=== PATIENT | female | born 1935 | race American Indian/Alaskan Native ===

== ENCOUNTER 2017-06-21 09:48 | Inpatient (IN) | payer OTHER ==
[2017-06-21] MEDS ORDERED: FAMOTIDINE IV 20 MG/12 ML VIAL IVPUSH ONE (10:44)
[2017-06-21] MEDS ORDERED: ONDANSETRON 4 MG/2 ML VIAL IVPB ONE ×3 (10:44→17:14)
[2017-06-21] MEDS ORDERED: ACETAMINOPHEN 1000 MG/100 ML VIAL (NON FORMULARY) IVPB ONE (10:44)
[2017-06-21] MEDS ORDERED: ONDANSETRON 4 MG/2 ML VIAL ONE ×3 (10:54→17:18)
[2017-06-21] MEDS ORDERED: FAMOTIDINE 20 MG/50 ML IVPB 20 MG/50 ML MG IVPB ONE (10:54)
[2017-06-21] MEDS ORDERED: ACETAMINOPHEN INJECTION 100 ML IVPB ONE (10:54)
[2017-06-21] MEDS: SODIUM CHLORIDE 1,000 ML IV SCH (11:03)
[2017-06-21 11:20] LABS: BASO % 0.2 % (0-2.0); EOS % 0.1 % (0-4.5); HEMOGLOBIN 10.8 GM/dL (10.7-15.3); LYMPH % 6.7 % (8-40); MCH 24.5 pg (25.7-33.7); MCHC 32.6 g/dl (32.0-36.0); MEAN CELL VOLUME 75.2 fl (80-96); MEAN PLT VOLUME 7.4 fl (7.5-11.1); MONO % 2.9 % (3.8-10.2); NEUT % 90.1 % (42.8-82.8); PLATELET COUNT 254 K/MM3 (134-434); RBC 4.38 M/mm3 (3.60-5.2); RDW 18.9 % (11.6-15.6)
--- NOTE | 2017-06-21 11:28 | PDOC ---
History of Present Illness - General History Source: Patient Exam Limitations: No Limitations - History of Present Illness Initial Comments: 06/21/17 11:43 The patient is an 82 year old female, with a significant PMH of stroke, HTN, and thyroid disorder who presents to the emergency department with abdominal pain and retching beginning approximately this morning. The patients daughter reports the patient notes diffuse lower abdominal pain with associated nausea, retching, and back pain, as the patient tries to vomit but doesnt bring anything up. She note the patient generally has a poor appetite and normally eats about 1 full meal a day. She reports giving the patient Nexium and natali- seltzer this morning to no relief. The patient denies history of abdominal surgery. The patient denies chest pain, shortness of breath, and dizziness. Denies fever, chills, diarrhea and constipation. Denies dysuria, frequency, urgency and hematuria. Allergies: NKA Past surgical history: Brain surgery. Social history: No reported cigarette, alcohol, or drug use. PCP: Dr. Johnson <Michael Corey - Last Filed: 06/21/17 16:29> - General History Source: Patient Exam Limitations: No Limitations <Michael Jacobo - Last Filed: 06/21/17 17:35> - General Chief Complaint: Nausea Stated Complaint: PAIN Time Seen by Provider: 06/21/17 10:31 Past History <Michael Corey - Last Filed: 06/21/17 16:29> - Past Medical History COPD: No HTN: Yes Thyroid Disease: Yes - Suicide/Smoking/Psychosocial Hx Smoking History: Never smoked <Michael Jacobo - Last Filed: 06/21/17 17:35> - Past Medical History Allergies/Adverse Reactions: Allergies Allergy/AdvReac Type Severity Reaction Status Date / Time No Known Allergies Allergy Verified 06/21/17 09:54 Home Medications: Ambulatory Orders Amlodipine Besylate [Norvasc -] 5 mg PO DAILY 06/21/17 Levothyroxine [Synthroid -] 75 mcg PO DAILY 06/21/17 Review of Systems - Review of Systems Able to Perform ROS?: Yes Comments:: 06/21/17 11:43 GENERAL/CONSTITUTIONAL: No fever or chills. No weakness. HEAD, EYES, EARS, NOSE AND THROAT: No change in vision. No ear pain or discharge. No sore throat. CARDIOVASCULAR: No chest pain or shortness of breath. RESPIRATORY: No cough, wheezing, or hemoptysis. GASTROINTESTINAL: (+) Diffuse lower abdominal pain. (+) Nausea. (+) Retching. No diarrhea or constipation. GENITOURINARY: No dysuria, frequency, or change in urination. MUSCULOSKELETAL: (+) Back pain. No joint pain. No neck pain. SKIN: No rash NEUROLOGIC: No headache, vertigo, loss of consciousness, or change in strength/ sensation. ENDOCRINE: No increased thirst. No abnormal weight change. HEMATOLOGIC/LYMPHATIC: No anemia, easy bleeding, or history of blood clots. ALLERGIC/IMMUNOLOGIC: No hives or skin allergy. <Michael Corey - Last Filed: 06/21/17 16:29> *Physical Exam - Vital Signs Last Vital Signs Temp Pulse Resp BP Pulse Ox 97.2 F L 80 18 141/62 100 06/21/17 11:15 06/21/17 09:51 06/21/17 09:51 06/21/17 09:51 06/21/17 09:51 - Physical Exam Comments: 06/21/17 11:43 GENERAL: Awake, alert, and fully oriented, in no acute distress EYES: PERRLA, EOMI, sclera anicteric, conjunctiva clear ENT: Auricles normal inspection, hearing grossly normal, nares patent, oropharynx clear without exudates. Moist mucosa LUNGS: Breath sounds equal, clear to auscultation bilaterally. No wheezes, and no crackles HEART: Regular rate and rhythm, normal S1 and S2, no murmurs, rubs or gallops ABDOMEN: (+) Tenderness to palpation in the suprapubic region, LLQ, and RLQ. No guarding, no rebound. No masses EXTREMITIES: Normal range of motion, no edema. No clubbing or cyanosis. No cords, erythema, or tenderness NEUROLOGICAL: Cranial nerves II through XII grossly intact. Normal speech, normal gait SKIN: Warm, Dry, normal turgor, no rashes or lesions noted. <Michael Corey - Last Filed: 06/21/17 16:29> - Vital Signs Last Vital Signs Temp Pulse Resp BP Pulse Ox 80 18 141/62 100 06/21/17 09:51 06/21/17 09:51 06/21/17 09:51 06/21/17 09:51 <Michael Jacobo - Last Filed: 06/21/17 17:35> Heart Score/ECG Review #1 ECG reviewed & interpreted by me at: 11:10 06/21/17 15:18 NSR 71, no std/farrukh, nonspecific ST flattening, QTC 467 msec <Michael Jacobo - Last Filed: 06/21/17 17:35> ED Treatment Course - LABORATORY CBC & Chemistry Diagram: 06/21/17 11:12 06/21/17 11:12 - Medications Given in the ED: ED Medications Discontinued Medications Generic Name Dose Route Start Last Admin Trade Name Freq PRN Reason Stop Dose Admin Acetaminophen 1,000 mg 06/21/17 10:44 06/21/17 11:19 Ofirmev Injection - IVPB 06/21/17 10:45 1,000 mg ONCE ONE Administration Famotidine 20 mg in 12 mls @ 144 mls/hr 06/21/17 10:44 06/21/17 11:02 Pepcid 20 Mg/12 Ml Push IVPUSH 06/21/17 10:48 144 mls/hr ONCE ONE Administration Ondansetron HCl 4 mg 06/21/17 10:44 06/21/17 11:03 Zofran Injection IVPB 06/21/17 10:45 4 mg ONCE ONE Administration <Michael Corey - Last Filed: 06/21/17 16:29> - LABORATORY CBC & Chemistry Diagram: 06/21/17 11:12 06/21/17 11:12 - RADIOLOGY Radiology Studies Ordered: Category Date Time Status ABDOMEN & PELVIS CT WITH CONTR [CT] Stat CT Scan 06/21/17 10:43 Ordered CHEST X-RAY PORTABLE* [RAD] Stat Radiology 06/21/17 10:43 Ordered - Medications Given in the ED: ED Medications Discontinued Medications Generic Name Dose Route Start Last Admin Trade Name Freq PRN Reason Stop Dose Admin Famotidine 20 mg in 12 mls @ 144 mls/hr 06/21/17 10:44 06/21/17 11:02 Pepcid 20 Mg/12 Ml Push IVPUSH 06/21/17 10:48 144 mls/hr ONCE ONE Administration Ondansetron HCl 4 mg 06/21/17 10:44 03/17/18 11:03 Zofran Injection IVPB 06/21/17 10:45 4 mg ONCE ONE Administration <Michael Jacobo - Last Filed: 06/21/17 17:35> Medical Decision Making - Medical Decision Making 06/21/17 16:[address] Johnson and discussed this case. 06/21/17 16:[address] Paiz and discussed this case. <Michael Corey - Last Filed: 06/21/17 16:29> - Medical Decision Making 06/21/17 11:28 A portion of this note was documented by scribe services under my direction. I have reviewed the details of the note, within reason, and agree with the documentation with the following case summary and management plan written by me. Patient treated in the ED. Nursing notes are reviewed and incorporated into the medical decision-making. Vital signs reviewed. Peripheral IV access obtained by the nurse, laboratory studies are drawn and sent, reviewed and interpreted by myself. Vital Signs Temp Pulse Resp BP Pulse Ox 97.2 F L 80 18 141/62 100 06/21/17 11:15 06/21/17 09:51 06/21/17 09:51 06/21/17 09:51 06/21/17 09:51 82-year-old female with history of hypertension, thyroid disorder, stroke presents with nausea, vomiting abdominal pain since this morning. Patient has had poor appetite but no fevers or chills. Denies any chest pain. Denies dysuria diarrhea. Patient has been generally weak when she typically is much more active. We'll need to rule out colitis, appendicitis, cystitis, colitis, other acute abdominal pathology. I suspect this is likely GI. We'll obtain labs, urinalysis and a CAT scan the abdomen pelvis and reassess. 06/21/17 17:01 CBC, BMP 06/21/17 11:12 06/21/17 11:12 CMP Sodium 138 mmol/L (136-145) 06/21/17 11:12 Potassium 3.2 mmol/L (3.5-5.1) L 06/21/17 11:12 Chloride 104 mmol/L (98-107) 06/21/17 11:12 Carbon Dioxide 27 mmol/L (21-32) 06/21/17 11:12 Anion Gap 7 (8-16) L 06/21/17 11:12 BUN 8 mg/dL (7-18) 06/21/17 11:12 Creatinine 0.5 mg/dL (0.55-1.02) L 06/21/17 11:12 Creat Clearance w eGFR > 60 (>60) 06/21/17 11:12 Random Glucose 153 mg/dL (74-106) H 06/21/17 11:12 Calcium 8.7 mg/dL (8.5-10.1) 06/21/17 11:12 Phosphorus 3.0 mg/dL (2.5-4.9) 06/21/17 11:12 Magnesium 2.0 mg/dL (1.8-2.4) 06/21/17 11:12 Total Bilirubin 0.3 mg/dL (0.2-1.0) 06/21/17 11:12 AST 12 U/L (15-37) L 06/21/17 11:12 ALT 11 U/L (12-78) L 06/21/17 11:12 Alkaline Phosphatase 90 U/L (45-117) 06/21/17 11:12 Creatine Kinase 86 IU/L (26-192) 06/21/17 11:12 Troponin I < 0.02 ng/ml (0.00-0.05) 06/21/17 11:12 Total Protein 8.1 g/dl (6.4-8.2) 06/21/17 11:12 Albumin 4.0 g/dl (3.4-5.0) 06/21/17 11:12 Lipase 101 U/L (73-393) 06/21/17 11:12 Urine Test Results Urine Color Straw 06/21/17 11:30 Urine Appearance Cloudy 06/21/17 11:30 Urine pH 8.0 (5.0-8.0) 06/21/17 11:30 Ur Specific [place] 1.009 (1.001-1.035) 06/21/17 11:30 Urine Protein Negative (NEGATIVE) 06/21/17 11:30 Urine Glucose (UA) Negative (NEGATIVE) 06/21/17 11:30 Urine Ketones Negative (NEGATIVE) 06/21/17 11:30 Urine Blood Negative (NEGATIVE) 06/21/17 11:30 Urine Nitrite Negative (NEGATIVE) 06/21/17 11:30 Urine Bilirubin Negative (NEGATIVE) 06/21/17 11:30 Ur Leukocyte Esterase 1+ (NEGATIVE) H 06/21/17 11:30 Ur Epithelial Cells Rare /HPF (FEW) 06/21/17 11:30 Urine Bacteria Rare /hpf (NONE SEEN) 06/21/17 11:30 Urinalysis demonstrates 1+ leukocyte esterase and 10 WBCs as well as yeast in the urine. 1 g of Rocephin and IV Diflucan ordered. CAT scan demonstrates a partial small bowel obstruction and left inguinal hernia. Reduction attempt was made with what appears to be a reduction in the hernia. However, patient still feels somewhat nauseous, and unclear if it was a complete reduction. We'll defer on NG tube at this time. Case is discussed with Dr. Johnson who requests general surgeon Dr. Paiz. He accepts the patient to his service. Case discussed with Dr. Paiz who will see patient as a parts consultant and determine further workup and management Case discussed in detail with admitting physician including history, physical exam and ancillary studies. Admitting physician has assumed care for the patient, will follow all pending diagnostics and will complete the evaluation and treatment. 06/21/17 17:35 Pt with persistent nausea and vomiting. NGT placed 18 Malay left nostril. <Michael Jacobo - Last Filed: 06/21/17 17:35> *DC/Admit/Observation/Transfer - Attestations Scribe Attestion: 06/21/17 11:43 Documentation prepared by Michael Corey, acting as medical researcher for Michael Jacobo MD. <Michael Corey - Last Filed: 06/21/17 16:29> - Discharge Dispostion Admit: Yes <Michael Jacobo - Last Filed: 06/21/17 17:35> Diagnosis at time of Disposition: Yeast cystitis UTI (urinary tract infection) Qualifiers: Urinary tract infection type: site unspecified Hematuria presence: without hematuria Qualified Code(s): N39.0 - Urinary tract infection, site not specified Inguinal hernia Qualifiers: Obstruction and gangrene presence: with obstruction but without gangrene Laterality: unilateral Recurrence: non-recurrent Qualified Code(s): K40.30 - Unilateral inguinal hernia, with obstruction, without gangrene, not specified as recurrent - Discharge Dispostion Condition at time of disposition: Stable - Referrals Referrals: Narciso Johnson MD [Primary Care Provider] - - Patient Instructions - Post Discharge Activity
[2017-06-21 11:46] LABS: URINE APPEARANCE CLOUDY; URINE BILIRUBIN NEGATIVE (NEGATIVE); URINE BLOOD NEGATIVE (NEGATIVE); URINE COLOR STRAW; URINE GLUCOSE (UA) NEGATIVE (NEGATIVE); URINE KETONE NEGATIVE (NEGATIVE); URINE NITRITE NEGATIVE (NEGATIVE); URINE PROTEIN NEGATIVE (NEGATIVE); URINE UROBILINOGEN NEGATIVE mg/dL (0.2-1.0)
[2017-06-21 11:54] LABS: ALK PHOS 90 U/L (45-117); ANION GAP 7 (8-16); BILIRUBIN,TOTAL 0.3 mg/dL (0.2-1.0); BLOOD UREA NITROGEN 8 mg/dL (7-18); CALCIUM 8.7 mg/dL (8.5-10.1); CHLORIDE 104 mmol/L (98-107); CO2 27 mmol/L (21-32); CREATININE 0.5 mg/dL (0.55-1.02); GLUCOSE,RANDOM 153 mg/dL (74-106); LIPASE 101 U/L (73-393); POTASSIUM 3.2 mmol/L (3.5-5.1); SGOT/AST 12 U/L (15-37); SGPT/ALT 11 U/L (12-78); SODIUM 138 mmol/L (136-145); TOT PROT 8.1 g/dl (6.4-8.2)
[2017-06-21 12:15] LABS: URINE LEUK ESTERASE 1+ (NEGATIVE)
[2017-06-21 13:43] LABS: EPI CELLS RARE /HPF (FEW); YEAST MODERATE
[2017-06-21 13:47] LABS: URINE BACTERIA RARE /hpf (NONE SEEN)
[2017-06-21] MEDS ORDERED: IBUPROFEN 600 MG TABLET (FP) PO ONE (15:07)
[2017-06-21] MEDS ORDERED: CEFTRIAXONE 1 GM in DEXTROSE 5%-WATER - 50 ML IVPB ONE (16:20)
[2017-06-21] MEDS ORDERED: CEFTRIAXONE 1 GM/50 ML BAG ONE (16:22)
[2017-06-21] MEDS ORDERED: FLUCONAZOLE 200 MG/D5W 100 ML IVPB ONE (16:58)
[2017-06-21] MEDS ORDERED: DEXTROSE 5%-NORMAL SALINE 1,000 ML IV SCH (18:30)
--- NOTE | 2017-06-21 18:39 | EKG ---
Test Reason : Blood Pressure : / mmHG Vent. Rate : 071 BPM Atrial Rate : 071 BPM P-R Int : 172 ms QRS Dur : 088 ms QT Int : 430 ms P-R-T Axes : 043 -07 008 degrees QTc Int : 467 ms SINUS RHYTHM WITH PREMATURE ATRIAL COMPLEXES CANNOT RULE OUT INFERIOR INFARCT , AGE UNDETERMINED ABNORMAL ECG NO PREVIOUS ECGS AVAILABLE Confirmed by NICKIE PAPPAS MD ([id number]) on 06/21/2017 6:39:21 PM Referred By: Confirmed By:NICKIE PAPPAS MD
--- NOTE | 2017-06-21 21:46 | CONSULT ---
Consult Consult Specialty:: Surgery Referred by:: Narciso zamarripa MD Reason for Consultation:: Intestinal obstruction, Incarcerated left inguinal hernia. - History of Present Illness Chief Complaint: 82 year old woman c/o lower abdominal pain since morning, with wretching. Also noted some swelling in left groin. History of Present Illness: 82 year old woman was brought to the Er for lower abdominal pain , since this morning, with anorexiia, and wretching. In the er she was noted to have a swelling in the right groin / inguinal area, which was reduced in the emergency room. 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 brain surgery. - Smoking History Smoking history: Never smoked - Social History Usual Living Arrangement: With Child ADL: Family Assistance Home Medications - Allergies Allergies/Adverse Reactions: Allergies Allergy/AdvReac Type Severity Reaction Status Date / Time No Known Allergies Allergy Verified 06/21/17 09:54 - Home Medications Home Medications: Ambulatory Orders Amlodipine Besylate [Norvasc -] 5 mg PO DAILY 06/21/17 Levothyroxine [Synthroid -] 75 mcg PO DAILY 06/21/17 Review of Systems - Review of Systems Constitutional: reports: No Symptoms Eyes: reports: No Symptoms HENT: reports: No Symptoms Neck: reports: No Symptoms Cardiovascular: reports: No Symptoms Respiratory: reports: No Symptoms Gastrointestinal: reports: Abdominal Pain, Nausea Physical Exam Vital Signs: Vital Signs Temperature 97.8 F 06/21/17 18:37 Pulse Rate 78 06/21/17 18:37 Respiratory Rate 18 06/21/17 18:37 Blood Pressure 149/70 06/21/17 18:37 O2 Sat by Pulse Oximetry (%) 96 06/21/17 18:37 Gastrointestinal: Yes: Other (Mass in left lower quadrant/ inguinal area, reduced in the ER. No abdominal distention.) Labs: CBC, BMP 06/21/17 11:12 06/21/17 11:12 Imaging - Results Cat Scan: Report Reviewed (Partiel small bowel obstruction from an ancarcerated / strangulated left inguinal hernia), Image Reviewed Problem List - Problems (1) Intestinal obstruction Code(s): K56.609 - UNSP INTESTNL OBST, UNSP TO PARTIAL VERSUS COMPLETE OBST Qualifiers: Intestinal obstruction extent: partial (2) Incarcerated left inguinal hernia Code(s): K40.30 - UNIL INGUINAL HERNIA, W OBST, W/O GANGR, NOT SPCF RECUR (3) Hypothyroid Code(s): E03.9 - HYPOTHYROIDISM, UNSPECIFIED Qualifiers: Hypothyroidism type: acquired Qualified Code(s): E03.9 - Hypothyroidism, unspecified (4) Hypertension Code(s): I10 - ESSENTIAL (PRIMARY) HYPERTENSION (5) History of stroke Code(s): Z86.73 - PRSNL HX OF TIA (TIA), AND CEREB INFRC W/O RESID DEFICITS Assessment/Plan Reduced incarcerated left inguinal hernia, with intestinal obstruction. NG tube has been placed. Follow up abdominal X-ray in the morning. The hernia has been reduced, and abdominal pain has improved. Prepare for repair of left inguinal hernia on Friday after medical assessment. This can be done with local anesthesia with IV sedation. family is informed , made aware and agreed with the patient. Dr Maverick Zamarripa . primary physician aware.
[2017-06-21 21:51] VITALS: BMI 18.1
[2017-06-22 07:20] LABS: HEMATOCRIT 31.1 % (32.4-45.2); HEMOGLOBIN 10.2 GM/dL (10.7-15.3); MCH 24.7 pg (25.7-33.7); MCHC 32.9 g/dl (32.0-36.0); MEAN CELL VOLUME 75.1 fl (80-96); MEAN PLT VOLUME 7.5 fl (7.5-11.1); PLATELET COUNT 243 K/MM3 (134-434); RBC 4.13 M/mm3 (3.60-5.2); RDW 18.8 % (11.6-15.6); WHITE BLOOD COUNT 8.2 K/mm3 (4.0-10.0)
[2017-06-22 08:02] LABS: CHLORIDE 104 mmol/L (98-107); SODIUM 140 mmol/L (136-145)
[2017-06-22 08:19] LABS: ALBUMIN 3.3 g/dl (3.4-5.0); ALK PHOS 77 U/L (45-117); ANION GAP 14 (8-16); BILIRUBIN,TOTAL 0.6 mg/dL (0.2-1.0); BLOOD UREA NITROGEN 5 mg/dL (7-18); CALCIUM 8.3 mg/dL (8.5-10.1); CO2 22 mmol/L (21-32); CREATININE 0.5 mg/dL (0.55-1.02); GLUCOSE,RANDOM 166 mg/dL (74-106); SGOT/AST 13 U/L (15-37); SGPT/ALT 9 U/L (12-78); TOT PROT 7.4 g/dl (6.4-8.2)
[2017-06-22 08:35] LABS: POTASSIUM 2.6 mmol/L (3.5-5.1)
[2017-06-22] MEDS ORDERED: POTASSIUM CHLORIDE 10 MEQ in SODIUM CHLORIDE 100 ML IVPB ONE (10:15)
[2017-06-22] MEDS: D5-NS + 20 MEQ KCL - 20 MEQ/1,000 ML INFUS.BAG IV SCH (11:07)
[2017-06-22] MEDS: POTASSIUM CHLORIDE 10 MEQ in SODIUM CHLORIDE 100 ML IVPB SCH ×3 (11:08→17:57)
[2017-06-22] MEDS: SODIUM CHLORIDE 1,000 ML IV SCH (11:24)
--- NOTE | 2017-06-22 12:02 | HP ---
DATE OF ADMISSION: 06/21/2017 This is an 82-year-old female originally from [place] with a past medical history of stroke, hypertension, hypothyroidism who came to the emergency room yesterday with abdominal pain and retching; also had vomiting. She was complaining of lower abdominal pain. In the emergency room, it was diagnosed that patient has intractable inguinal hernia with a partial small bowel obstruction. Patient was treated with NG tube. Afterwards, the intestinal obstruction was resolved. Evaluated by Dr. Paiz; advised to inguinal hernia surgery after the symptoms resolved. PHYSICAL EXAMINATION: General: Today's abdominal pain is better. Vital Signs: Blood pressure 160/80, pulse 72, respirations 20, temperature 98. HEENT: Unremarkable. Neck: Supple. No JVD. Lungs: Clear. Heart: S1, S2 normal. No S3, S4. Abdomen: Soft. Breasts: No masses. Legs: No edema. Neurologic: Examination grossly normal. LABORATORY REPORTED: WBC 8.2, hemoglobin 10.2, hematocrit 31. Chemistry: Sodium 140, potassium this morning is 2.6, BUN 5, creatinine 0.5. LFTs are normal. Chest x-ray: Negative. X-ray of abdomen this morning: Small bowel obstruction, retaining contrast. IMPRESSION: Intestinal obstruction, recovered. PLAN: Keep IV fluid, correct potassium. Patient is medically cleared for the surgery. Dilcia [id number]
--- NOTE | 2017-06-22 13:01 | PN ---
Progress Note, Physician - Current Medication List Current Medications: Active Medications Sodium Chloride (Normal Saline -) 1,000 mls @ 125 mls/hr IV ASDIR CARI Last Admin: 06/22/17 11:24 Dose: Not Given Dextrose/Sodium Chloride (Dextrose 5%-Normal Saline+20 Meq Kcl -) 20 meq in 1, 000 mls @ 125 mls/hr IV ASDIR CARI Last Admin: 06/22/17 11:07 Dose: 125 mls/hr Potassium Chloride 10 meq/ (Sodium Chloride) 105 mls @ 105 mls/hr IVPB Q1H CARI Stop: 06/22/17 13:59 Last Admin: 06/22/17 11:08 Dose: 105 mls/hr - Objective Vital Signs: Vital Signs Temperature 97.6 F 06/22/17 11:28 Pulse Rate 76 06/22/17 11:28 Respiratory Rate 18 06/22/17 11:28 Blood Pressure 145/71 06/22/17 11:28 O2 Sat by Pulse Oximetry (%) 96 06/21/17 20:40 Labs: CBC, BMP 06/22/17 06:08 06/22/17 06:08 Problem List - Problems (1) Intestinal obstruction Code(s): K56.609 - UNSP INTESTNL OBST, UNSP TO PARTIAL VERSUS COMPLETE OBST Qualifiers: Intestinal obstruction extent: partial (2) Incarcerated left inguinal hernia Code(s): K40.30 - UNIL INGUINAL HERNIA, W OBST, W/O GANGR, NOT SPCF RECUR (3) Hypothyroid Code(s): E03.9 - HYPOTHYROIDISM, UNSPECIFIED Qualifiers: Hypothyroidism type: acquired Qualified Code(s): E03.9 - Hypothyroidism, unspecified (4) Hypertension Code(s): I10 - ESSENTIAL (PRIMARY) HYPERTENSION (5) History of stroke Code(s): Z86.73 - PRSNL HX OF TIA (TIA), AND CEREB INFRC W/O RESID DEFICITS Assessment/Plan Patient has no abdominal pain, no abdominal distention. Afebrile. Abdomen is soft, notbtender, not distended. X-ray of abdomen shows no progression of contrast. WBC is normal. Minimal NG drainage. No swelling , redness or tenderness in the left groin. Mainatin NG tube to suction. Will schedule patient for laparoscopy, possible laparotomy , and repair of incarcerated left inguinal hernia tomorrow. Patient and her daughter were explained. Consent obtained.
[2017-06-22] MEDS ORDERED: ONDANSETRON 4 MG/2 ML VIAL IM PRN (13:04)
[2017-06-22] MEDS ORDERED: ONDANSETRON 4 MG/2 ML VIAL IVPB PRN (19:44)
[2017-06-23 07:26] LABS: CHLORIDE 108 mmol/L (98-107); SODIUM 142 mmol/L (136-145)
[2017-06-23 07:33] LABS: ALBUMIN 3.2 g/dl (3.4-5.0); ALK PHOS 70 U/L (45-117); ANION GAP 12 (8-16); BILIRUBIN,TOTAL 0.5 mg/dL (0.2-1.0); BLOOD UREA NITROGEN 7 mg/dL (7-18); CALCIUM 8.6 mg/dL (8.5-10.1); CO2 22 mmol/L (21-32); CREATININE 0.4 mg/dL (0.55-1.02); GLUCOSE,RANDOM 152 mg/dL (74-106); SGOT/AST 8 U/L (15-37); SGPT/ALT 8 U/L (12-78); TOT PROT 7.2 g/dl (6.4-8.2)
[2017-06-23 07:48] LABS: BASO % 0.2 % (0-2.0); HEMATOCRIT 30.8 % (32.4-45.2); HEMOGLOBIN 10.1 GM/dL (10.7-15.3); LYMPH % 6.4 % (8-40); MCH 24.8 pg (25.7-33.7); MCHC 32.9 g/dl (32.0-36.0); MEAN CELL VOLUME 75.3 fl (80-96); MEAN PLT VOLUME 7.9 fl (7.5-11.1); MONO % 5.2 % (3.8-10.2); NEUT % 88.2 % (42.8-82.8); PLATELET COUNT 248 K/MM3 (134-434); RBC 4.09 M/mm3 (3.60-5.2); RDW 18.6 % (11.6-15.6); WHITE BLOOD COUNT 10.2 K/mm3 (4.0-10.0)
[2017-06-23 07:49] LABS: INR 1.19 (0.82-1.09); PROTHROMBIN TIME (PATIENT) 13.5 SEC (9.98-11.88)
[2017-06-23 08:13] LABS: POTASSIUM 2.9 mmol/L (3.5-5.1)
--- NOTE | 2017-06-23 09:10 | PN ---
Progress Note, Physician Chief Complaint: No new complaints History of Present Illness: Schduled for surgery. K 2.9 Plan 3doses of KCLand rpt lab - Current Medication List Current Medications: Active Medications Sodium Chloride (Normal Saline -) 1,000 mls @ 125 mls/hr IV ASDIR CARI Last Admin: 06/22/17 11:24 Dose: Not Given Dextrose/Sodium Chloride (Dextrose 5%-Normal Saline+20 Meq Kcl -) 20 meq in 1, 000 mls @ 125 mls/hr IV ASDIR CARI Last Admin: 06/22/17 11:07 Dose: 125 mls/hr Potassium Chloride (Potassium Chloride 10 Meq Premix Ivpb -) 10 meq in 100 mls @ 100 mls/hr IVPB Q60M CARI Stop: 06/23/17 12:14 Ondansetron HCl (Zofran Injection) 4 mg IVPB Q6H PRN PRN Reason: NAUSEA AND/OR VOMITING - Objective Vital Signs: Vital Signs Temperature 98.3 F 06/23/17 06:34 Pulse Rate 76 06/23/17 06:34 Respiratory Rate 18 06/23/17 06:34 Blood Pressure 149/64 06/23/17 06:34 O2 Sat by Pulse Oximetry (%) 98 06/22/17 21:00 Constitutional: Yes: No Distress HENT: Yes: WNL Neck: Yes: WNL Cardiovascular: Yes: WNL Respiratory: Yes: WNL Gastrointestinal: Yes: WNL ...Rectal Exam: Yes: WNL Genitourinary: Yes: WNL Edema: No Neurological: Yes: Alert Labs: CBC, BMP 06/23/17 05:35 06/23/17 05:35 INR, PTT INR 1.19 (0.82-1.09) H 06/23/17 05:35 Assessment/Plan Kcl supplements
[2017-06-23] MEDS: POTASSIUM CHLORIDE 10 MEQ in SODIUM CHLORIDE 100 ML IVPB SCH ×3 (10:19→12:32)
[2017-06-23 11:18] LABS: ALBUMIN 3.4 g/dl (3.4-5.0); ANION GAP 10 (8-16); BLOOD UREA NITROGEN 6 mg/dL (7-18); CALCIUM 8.2 mg/dL (8.5-10.1); CHLORIDE 110 mmol/L (98-107); CO2 24 mmol/L (21-32); CREATININE 0.5 mg/dL (0.55-1.02); POTASSIUM 2.9 mmol/L (3.5-5.1); SGOT/AST 8 U/L (15-37); SGPT/ALT 11 U/L (12-78); SODIUM 144 mmol/L (136-145)
[2017-06-23 11:20] LABS: ALK PHOS 72 U/L (45-117); BILIRUBIN,TOTAL 0.5 mg/dL (0.2-1.0); TOT PROT 7.3 g/dl (6.4-8.2)
[2017-06-23 11:21] LABS: GLUCOSE,RANDOM 134 mg/dL (74-106)
[2017-06-23] MEDS: D5-NS + 20 MEQ KCL - 20 MEQ/1,000 ML INFUS.BAG IV SCH (11:25)
[2017-06-23] MEDS: SODIUM CHLORIDE 1,000 ML IV SCH (11:26)
--- NOTE | 2017-06-23 14:19 | PN ---
Progress Note, Physician - Current Medication List Current Medications: Active Medications Sodium Chloride (Normal Saline -) 1,000 mls @ 125 mls/hr IV ASDIR CARI Last Admin: 06/23/17 11:26 Dose: Not Given Dextrose/Sodium Chloride (Dextrose 5%-Normal Saline+20 Meq Kcl -) 20 meq in 1, 000 mls @ 125 mls/hr IV ASDIR CARI Last Admin: 06/23/17 11:25 Dose: 125 mls/hr Ondansetron HCl (Zofran Injection) 4 mg IVPB Q6H PRN PRN Reason: NAUSEA AND/OR VOMITING Last Admin: 06/23/17 13:23 Dose: 4 mg - Objective Vital Signs: Vital Signs Temperature 98.3 F 06/23/17 06:34 Pulse Rate 76 06/23/17 06:34 Respiratory Rate 18 06/23/17 06:34 Blood Pressure 149/64 06/23/17 06:34 O2 Sat by Pulse Oximetry (%) 98 06/23/17 09:00 Labs: CBC, BMP 06/23/17 05:35 06/23/17 10:00 INR, PTT INR 1.19 (0.82-1.09) H 06/23/17 05:35 Problem List - Problems (1) Intestinal obstruction Code(s): K56.609 - UNSP INTESTNL OBST, UNSP TO PARTIAL VERSUS COMPLETE OBST Qualifiers: Intestinal obstruction extent: partial (2) Incarcerated left inguinal hernia Code(s): K40.30 - UNIL INGUINAL HERNIA, W OBST, W/O GANGR, NOT SPCF RECUR (3) Hypothyroid Code(s): E03.9 - HYPOTHYROIDISM, UNSPECIFIED Qualifiers: Hypothyroidism type: acquired Qualified Code(s): E03.9 - Hypothyroidism, unspecified (4) Hypertension Code(s): I10 - ESSENTIAL (PRIMARY) HYPERTENSION (5) History of stroke Code(s): Z86.73 - PRSNL HX OF TIA (TIA), AND CEREB INFRC W/O RESID DEFICITS Assessment/Plan NG drainage 250 ml in 24 hours. Patient still has some lower abdominal pain. No swelling felt in left inguinal hernia. Abdominal X ray shows persistent small bowel obstruction. Abdomen is not distended. ? Persistent small bowel obstruction , following reduction of incarcerated left inguinal hernia. R/O Reduction en iain. Patient and her daughter were explained of the findings and procedure planned , laparoscopy , possible laparotomy. possible surgery for intestinal obstruction, and repair of inguinal hernia. Risks , benefits and complications explained. Runs of potassium given , for hypokalemia. All questions answered.
[2017-06-23] MEDS ORDERED: ROCURONIUM BROMIDE 50 MG/5 ML VIAL ONE ×2 (14:59→15:00)
[2017-06-23] MEDS ORDERED: PROPOFOL 20 ML ONE (14:59)
[2017-06-23] MEDS ORDERED: SUCCINYLCHOLINE CHLORIDE 200 MG/10 ML VIAL ONE (14:59)
[2017-06-23] MEDS ORDERED: LIDOCAINE HCL/PF 2% SDV 5ML VIAL ONE (14:59)
[2017-06-23] MEDS ORDERED: BUPIVACAINE HCL/PF 0.5% (5MG/ML) 10 ML VIAL ONE (15:01)
[2017-06-23] MEDS ORDERED: NEOSTIGMINE METHYLSULFATE 0.5 MG/ML - 10 ML MDV ONE (16:48)
[2017-06-23] MEDS ORDERED: GLYCOPYRROLATE 0.2 MG/1 ML VIAL ONE ×2 (16:48)
[2017-06-23] MEDS ORDERED: BUPIVACAINE HCL/PF 0.5% (5MG/ML) 10 ML VIAL IJ ONE (16:48)
--- NOTE | 2017-06-23 17:10 | OP ---
Operative Note - Note: Operative Date: 06/23/17 Pre-Operative Diagnosis: Incarcerated left groin hernia, intestinal obstruction , Hypokalemia. Operation: 1)Repair of incarcerated left femoral hernia with plug and mesh,. 2) Diagnostic laproscopy. Findings: Incarcerated segment of small intestine , in left sided femoral hernia. The small intestine inmproved in color and mobility after releasing from the incarceration. Diagnostic laparoscopy , revealed no other pathology, with improved segment of small intestine with normal peristalsis across the incarcerated segment. Surgeon: Sridhar Paiz Conservation Worker: Nataly Lemus Anesthesiologist/DIRECTOR STERILE PROCESSING: Reid Tian Anesthesia: General Specimens Removed: Incarcerated hernial sac , of left femoral hernia. Estimated Blood Loss (mls): 30 Operative Report Dictated: Yes
[2017-06-23] MEDS ORDERED: HYDROmorphone HCL CARPU-JECT 4 MG/1 ML DISP.SYRIN IVPUSH PRN ×2 (17:13→18:43)
[2017-06-23] MEDS ORDERED: ONDANSETRON 4 MG/2 ML VIAL IVPUSH PRN ×2 (17:19→18:43)
[2017-06-23] MEDS ORDERED: oxyCODONE HCL 5 MG TABLET PO PRN (17:19)
[2017-06-23] MEDS ORDERED: PROMETHAZINE HCL 25 MG/1 ML VIAL IVPUSH PRN ×2 (17:19→18:43)
--- NOTE | 2017-06-23 17:35 | SURG ---
Surgery Tmr Teacher Note Tmr Teacher: Nataly Lemus PA-C Date of Service: 06/23/17 Diagnosis: Incarcerated left groin hernia, intestinal obstruction, Hypokalemia. Procedure: 1)Repair of incarcerated left femoral hernia with plug and mesh,. 2) Diagnostic laproscopy. I was present for the entirety of the operative procedure. For further detail, please refer to operative report. Visit type - Case Type Case Type: Scheduled Admission - Emergency Emergency Visit: No - New patient This patient is new to me today: Yes Date on this admission: 06/23/17
[2017-06-23 18:08] LABS: HEMATOCRIT 32.9 % (32.4-45.2); HEMOGLOBIN 10.9 GM/dL (10.7-15.3); MCH 25.1 pg (25.7-33.7); MCHC 33.2 g/dl (32.0-36.0); MEAN CELL VOLUME 75.5 fl (80-96); PLATELET COUNT 237 K/MM3 (134-434); RBC 4.36 M/mm3 (3.60-5.2); RDW 18.8 % (11.6-15.6); WHITE BLOOD COUNT 9.9 K/mm3 (4.0-10.0)
[2017-06-23] MEDS ORDERED: D5-NS + 20 MEQ KCL - 20 MEQ/1,000 ML INFUS.BAG IV SCH (18:43)
[2017-06-23 18:52] LABS: ANION GAP 6 (8-16); BLOOD UREA NITROGEN 5 mg/dL (7-18); CALCIUM 8.1 mg/dL (8.5-10.1); CHLORIDE 110 mmol/L (98-107); CO2 26 mmol/L (21-32); CREATININE 0.4 mg/dL (0.55-1.02); GLUCOSE,RANDOM 126 mg/dL (74-106); SODIUM 142 mmol/L (136-145)
[2017-06-23 19:01] LABS: POTASSIUM 3.5 mmol/L (3.5-5.1)
[2017-06-24] MEDS: POTASSIUM CHLORIDE 20 MEQ in DEXTROSE 5%-NORMAL SALINE 1,000 ML IVPB SCH ×4 (01:05→22:27)
[2017-06-24 07:46] LABS: CHLORIDE 108 mmol/L (98-107); SODIUM 144 mmol/L (136-145)
[2017-06-24 07:55] LABS: HEMATOCRIT 27.2 % (32.4-45.2); MCH 24.9 pg (25.7-33.7); MCHC 33.2 g/dl (32.0-36.0); MEAN CELL VOLUME 74.9 fl (80-96); MEAN PLT VOLUME 7.9 fl (7.5-11.1); PLATELET COUNT 217 K/MM3 (134-434); RBC 3.63 M/mm3 (3.60-5.2); RDW 18.3 % (11.6-15.6); WHITE BLOOD COUNT 9.9 K/mm3 (4.0-10.0)
[2017-06-24 07:57] LABS: ANION GAP 11 (8-16); BLOOD UREA NITROGEN 11 mg/dL (7-18); CALCIUM 8.4 mg/dL (8.5-10.1); CO2 25 mmol/L (21-32); CREATININE 0.4 mg/dL (0.55-1.02); GLUCOSE,RANDOM 110 mg/dL (74-106)
--- NOTE | 2017-06-24 09:25 | PN ---
Progress Note, Physician History of Present Illness: S/P repair of incarserated femoral hernia Left Tolerated the procedure well - Current Medication List Current Medications: Active Medications Fentanyl (Sublimaze Injection -) 25 mcg IVPUSH [id number] PRN PRN Reason: PAIN-PACU ORDER X 4 DOSES ONLY Last Admin: 06/23/17 18:55 Dose: 25 mcg Heparin Sodium (Porcine) (Heparin -) 5,000 unit SQ BID [facility] Hydromorphone HCl (Dilaudid Injection -) 0.5 mg IVPUSH Q4H PRN PRN Reason: PAIN LEVEL 1-5 Metronidazole (Flagyl 500mg Premixed Ivpb -) 500 mg in 100 mls @ 100 mls/hr IVPB Q8H-IV [facility] Stop: 06/24/17 17:59 Last Admin: 06/24/17 01:14 Dose: 100 mls/hr Levofloxacin (Levaquin 500 Mg Premixed Ivpb -) 500 mg in 100 mls @ 100 mls/hr IVPB ONCE ONE Stop: 06/24/17 18:13 Potassium Chloride 20 meq/ (Dextrose/Sodium Chloride) 1,010 mls @ 125 mls/hr IVPB Q8H [facility] Last Admin: 06/24/17 01:05 Dose: 125 mls/hr Ondansetron HCl (Zofran Injection) 4 mg IVPUSH Q6H PRN PRN Reason: NAUSEA AND/OR VOMITING Promethazine HCl (Phenergan Injection -) 12.5 mg IVPUSH Q6H PRN PRN Reason: NAUSEA-FOR RESCUE AFTER 15 MIN - Objective Vital Signs: Vital Signs Temperature 98.4 F 06/24/17 06:20 Pulse Rate 82 06/24/17 06:20 Respiratory Rate 20 06/24/17 06:20 Blood Pressure 140/65 06/24/17 06:20 O2 Sat by Pulse Oximetry (%) 100 06/23/17 21:00 Constitutional: Yes: Mild Distress Eyes: Yes: WNL HENT: Yes: WNL Neck: Yes: WNL Cardiovascular: Yes: WNL Respiratory: Yes: WNL Gastrointestinal: Yes: Hypoactive Bowel Sounds ...Rectal Exam: Yes: Deferred Genitourinary: Yes: Majano Present Edema: No Wound/Incision: Yes: Clean/Dry Neurological: Yes: Alert Labs: CBC, BMP 06/24/17 05:30 03/20/18 05:30 INR, PTT INR 1.19 (0.82-1.09) H 06/23/17 05:35 Assessment/Plan DC NGT DC majano Clear liquid diet OOB walking
--- NOTE | 2017-06-24 09:39 | OP ---
DATE OF OPERATION: 06/23/2017 PREOPERATIVE DIAGNOSES: Intestinal obstruction, incarcerated left groin hernia, hypertension, history of craniotomy, and hypothyroidism. POSTOPERATIVE DIAGNOSIS: Incarcerated left femoral hernia. OPERATIVE PROCEDURE: Repair of incarcerated femoral hernia and diagnostic laparoscopy. SURGEON: Wade Paiz MD RESIDENTIAL FIELD MANAGER: WALKER Vigil ANESTHESIA: General anesthesia. OPERATIVE DESCRIPTION: This 82-year-old woman came to the hospital on June 21, 2017, with an incarcerated left inguinal hernia. The hernia was reduced in the emergency room. On examination, the patient did not have any swelling in the left groin. The abdomen was soft, not distended. An NG tube had been placed. However, her abdominal x-ray showed persistent small-bowel obstruction. Patient was hydrated. She was hypokalemic. This was also corrected with potassium replacement. The abdomen was painted and draped. Consent was obtained for laparoscopy as well as repair of left inguinal/groin hernia. Patient was given general anesthesia. Timeout was called. She was given Levaquin and Flagyl prior to the procedure. An incision was then made in the left groin. On examination under anesthesia, a mass was palpated in the left groin. A crease incision was made in the left groin, which was deepened through the skin and subcutaneous tissue. There was a large bulge below the inguinal ligament. This was carefully from the rest of the structures. A large sac was then noted. Under the sac, there was omentum, and there was a trapped loop of small intestine. This was carefully from the rest of the structures, which showed that this was medial to the femoral vessels and lateral to the pubic symphysis, suggesting this to be a femoral hernia. The constricting ring was then released. The bowel was pulled into the wound from the abdominal cavity. On either side, the bowel was viable. However, the trapped segment was dark. This was then treated with warm saline which showed complete recovery of the bowel with peristalsis across it. The bowel consistency was very thick. The mesentery of the bowel was intact and pulsatile. After adequate resuscitation and recovery of color to the bowel, this was returned to the abdominal cavity. The sac was then suture ligated with 2-0 Vicryl sutures. The edges of the defect were then identified. The largest plug was then introduced into the defect, pushing the peritoneum cephalad. The plug was anchored in the inferior portion to the Poupart ligament with interrupted Vicryl sutures. The anterior portion of the plug was sutured to the undersurface of the internal oblique and transverse abdominis muscle. The plug was then inserted into the defect, and the edges were sutured with the 0 Vicryl sutures. The mesh was then placed across the defect. This was anchored at the level of the pubic tubercle with 2-0 Prolene sutures. The inferior leaf of the mesh was sutured again to the Magno ligament with interrupted Prolene sutures. The superior leaf of the mesh was placed under the internal oblique and transverse abdominis muscle and anchored with 2-0 Prolene sutures. These 2-0 Prolene sutures were also holding the plug around the surface of the abdominal wall. The seam was brought through the mesh, and the knot was fashioned. Lateral to the defect, another Prolene suture was used to bring the internal oblique down to the Magno ligament lateral to the femoral vein. Along with this, the external oblique aponeurosis was also brought, namely the shelving edge with Prolene sutures. The defect was thus completely covered. The mesh was then placed laterally beneath the external oblique aponeurosis and over the internal oblique and transverse abdominis muscle. The repair was adequately performed. The wound was irrigated. Hemostasis was satisfactory. The deep fascia from the thigh and the Angelica fascia were approximated with buried, interrupted 3-0 Vicryl sutures. The subcutaneous fat was also approximated with buried, interrupted 3-0 Vicryl sutures and the skin approximated with continuous 4-0 Monocryl sutures in a running subcuticular fashion. Then another incision was made in the inferior crease of the umbilicus for a diagnostic laparoscopy. This was carried down through the skin and subcutaneous tissue all the way to the linea alba. The linea alba was then incised in the midline just below the umbilicus vertically, and the peritoneum was incised. Two stay sutures of 2-0 Vicryl were obtained on either side, and then, a 10-12 mm laparoscopic trocar was inserted into the abdominal cavity. This was with the Rosmery type. The abdomen was inflated with carbon dioxide at 6 L per minute with a maximum intraabdominal pressure of 15 mmHg. A 5-mm camera was introduced into the abdominal cavity. Another 5-mm trocar was inserted in the left upper quadrant of the abdomen. This was noted entering the abdominal cavity under direct vision of the camera. The repair was then noted. There was no defect. The small bowel that was trapped in the hernia sac was viable, inflated, as well as there was peristalsis noted going across the segment of the small intestine. The rest of the small bowel was normal. The instruments were then withdrawn under direct vision. The abdomen was deflated. The midline linea alba was approximated with interrupted and [id number] 2-0 Vicryl sutures. The skin was approximated with buried, interrupted 4-0 Monocryl sutures. Dermabond was applied across the skin edges, 0.5% Marcaine was injected into the wound. Estimated blood loss was 20-25 mL. The patient tolerated the procedure well, was extubated, and sent to the recovery room in satisfactory and stable condition. Dilcia [id number] CC: Narciso Johnson MD
[2017-06-24] MEDS ORDERED: HEPARIN NA (PORCINE) 5,000 UNITS/ML 1ML VIAL SQ SCH (10:00)
--- NOTE | 2017-06-24 10:04 | PN ---
Progress Note, Physician - Current Medication List Current Medications: Active Medications Fentanyl (Sublimaze Injection -) 25 mcg IVPUSH [id number] PRN PRN Reason: PAIN-PACU ORDER X 4 DOSES ONLY Last Admin: 06/23/17 18:55 Dose: 25 mcg Heparin Sodium (Porcine) (Heparin -) 5,000 unit SQ BID [facility] Hydromorphone HCl (Dilaudid Injection -) 0.5 mg IVPUSH Q4H PRN PRN Reason: PAIN LEVEL 1-5 Metronidazole (Flagyl 500mg Premixed Ivpb -) 500 mg in 100 mls @ 100 mls/hr IVPB Q8H-IV [facility] Stop: 06/24/17 17:59 Last Admin: 06/24/17 01:14 Dose: 100 mls/hr Levofloxacin (Levaquin 500 Mg Premixed Ivpb -) 500 mg in 100 mls @ 100 mls/hr IVPB ONCE ONE Stop: 06/24/17 18:13 Potassium Chloride 20 meq/ (Dextrose/Sodium Chloride) 1,010 mls @ 125 mls/hr IVPB Q8H [facility] Last Admin: 06/24/17 01:05 Dose: 125 mls/hr Levothyroxine Sodium (Synthroid -) 75 mcg PO DAILY@0700 [facility] Ondansetron HCl (Zofran Injection) 4 mg IVPUSH Q6H PRN PRN Reason: NAUSEA AND/OR VOMITING Promethazine HCl (Phenergan Injection -) 12.5 mg IVPUSH Q6H PRN PRN Reason: NAUSEA-FOR RESCUE AFTER 15 MIN - Objective Vital Signs: Vital Signs Temperature 98.4 F 06/24/17 06:20 Pulse Rate 82 06/24/17 06:20 Respiratory Rate 20 06/24/17 06:20 Blood Pressure 140/65 06/24/17 06:20 O2 Sat by Pulse Oximetry (%) 100 06/23/17 21:00 Labs: CBC, BMP 06/24/17 05:30 06/24/17 05:30 INR, PTT INR 1.19 (0.82-1.09) H 06/23/17 05:35 Problem List - Problems (1) Intestinal obstruction Code(s): K56.609 - UNSP INTESTNL OBST, UNSP TO PARTIAL VERSUS COMPLETE OBST Qualifiers: Intestinal obstruction extent: partial (2) Incarcerated left inguinal hernia Code(s): K40.30 - UNIL INGUINAL HERNIA, W OBST, W/O GANGR, NOT SPCF RECUR (3) Hypothyroid Code(s): E03.9 - HYPOTHYROIDISM, UNSPECIFIED Qualifiers: Hypothyroidism type: acquired Qualified Code(s): E03.9 - Hypothyroidism, unspecified (4) Hypertension Code(s): I10 - ESSENTIAL (PRIMARY) HYPERTENSION (5) History of stroke Code(s): Z86.73 - PRSNL HX OF TIA (TIA), AND CEREB INFRC W/O RESID DEFICITS Assessment/Plan Surgery: Patient is alert and oriented. Afebrile. Abdomen is soft , not tender. Wound is clean Labs: normal. Plan: Out of bed, Clear liquids by mouth. DVT prophylaxis.
[2017-06-24] MEDS: HEPARIN NA (PORCINE) 5,000 UNITS/ML 1ML VIAL SQ SCH ×2 (10:23→22:15)
--- NOTE | 2017-06-24 12:29 | PN ---
Progress Note, Physician Chief Complaint: day #1 s/p femoral hernia repair - Current Medication List Current Medications: Active Medications Fentanyl (Sublimaze Injection -) 25 mcg IVPUSH [id number] PRN PRN Reason: PAIN-PACU ORDER X 4 DOSES ONLY Last Admin: 06/23/17 18:55 Dose: 25 mcg Heparin Sodium (Porcine) (Heparin -) 5,000 unit SQ BID [facility] Last Admin: 06/24/17 10:23 Dose: 5,000 unit Hydromorphone HCl (Dilaudid Injection -) 0.5 mg IVPUSH Q4H PRN PRN Reason: PAIN LEVEL 1-5 Metronidazole (Flagyl 500mg Premixed Ivpb -) 500 mg in 100 mls @ 100 mls/hr IVPB Q8H-IV [facility] Stop: 06/24/17 17:59 Last Admin: 06/24/17 10:20 Dose: 100 mls/hr Levofloxacin (Levaquin 500 Mg Premixed Ivpb -) 500 mg in 100 mls @ 100 mls/hr IVPB ONCE ONE Stop: 06/24/17 18:13 Potassium Chloride 20 meq/ (Dextrose/Sodium Chloride) 1,010 mls @ 125 mls/hr IVPB Q8H [facility] Last Admin: 06/24/17 01:05 Dose: 125 mls/hr Levothyroxine Sodium (Synthroid -) 75 mcg PO DAILY@0700 [facility] Ondansetron HCl (Zofran Injection) 4 mg IVPUSH Q6H PRN PRN Reason: NAUSEA AND/OR VOMITING Promethazine HCl (Phenergan Injection -) 12.5 mg IVPUSH Q6H PRN PRN Reason: NAUSEA-FOR RESCUE AFTER 15 MIN - Objective Vital Signs: Vital Signs Temperature 97.9 F 06/24/17 10:46 Pulse Rate 76 06/24/17 10:46 Respiratory Rate 20 06/24/17 10:46 Blood Pressure 137/59 06/24/17 10:46 O2 Sat by Pulse Oximetry (%) 100 06/23/17 21:00 Labs: CBC, BMP 06/24/17 05:30 06/24/17 05:30 INR, PTT INR 1.19 (0.82-1.09) H 06/23/17 05:35 Assessment/Plan PT tolerated procedure well. Pain under good control, no anesthetc issues. Continue current care.
[2017-06-24] MEDS: LEVOTHYROXINE NA 75 MCG TABLET (FP) PO SCH (12:44)
[2017-06-25] MEDS: POTASSIUM CHLORIDE 20 MEQ in DEXTROSE 5%-NORMAL SALINE 1,000 ML IVPB SCH ×4 (06:57→17:57)
[2017-06-25] MEDS: LEVOTHYROXINE NA 75 MCG TABLET (FP) PO SCH (06:58)
[2017-06-25 08:53] LABS: HEMATOCRIT 26.4 % (32.4-45.2); HEMOGLOBIN 8.6 GM/dL (10.7-15.3); MCH 24.8 pg (25.7-33.7); MCHC 32.7 g/dl (32.0-36.0); MEAN CELL VOLUME 75.7 fl (80-96); MEAN PLT VOLUME 7.8 fl (7.5-11.1); PLATELET COUNT 183 K/MM3 (134-434); RBC 3.48 M/mm3 (3.60-5.2); RDW 17.7 % (11.6-15.6); WHITE BLOOD COUNT 6.4 K/mm3 (4.0-10.0)
--- NOTE | 2017-06-25 08:59 | PN ---
Progress Note, Physician History of Present Illness: S/P Lfemoral hernia repair Tolerating liquid diet well - Current Medication List Current Medications: Active Medications Fentanyl (Sublimaze Injection -) 25 mcg IVPUSH [id number] PRN PRN Reason: PAIN-PACU ORDER X 4 DOSES ONLY Last Admin: 06/23/17 18:55 Dose: 25 mcg Heparin Sodium (Porcine) (Heparin -) 5,000 unit SQ BID [facility] Last Admin: 06/24/17 22:15 Dose: 5,000 unit Hydromorphone HCl (Dilaudid Injection -) 0.5 mg IVPUSH Q4H PRN PRN Reason: PAIN LEVEL 1-5 Potassium Chloride 20 meq/ (Dextrose/Sodium Chloride) 1,010 mls @ 125 mls/hr IVPB Q8H [facility] Last Admin: 06/25/17 06:58 Dose: Not Given Levothyroxine Sodium (Synthroid -) 75 mcg PO DAILY@0700 [facility] Last Admin: 06/25/17 06:58 Dose: 75 mcg Ondansetron HCl (Zofran Injection) 4 mg IVPUSH Q6H PRN PRN Reason: NAUSEA AND/OR VOMITING Promethazine HCl (Phenergan Injection -) 12.5 mg IVPUSH Q6H PRN PRN Reason: NAUSEA-FOR RESCUE AFTER 15 MIN - Objective Vital Signs: Vital Signs Temperature 98.3 F 06/25/17 06:43 Pulse Rate 82 06/25/17 06:43 Respiratory Rate 20 06/25/17 06:43 Blood Pressure 132/58 06/25/17 06:43 O2 Sat by Pulse Oximetry (%) 100 06/23/17 21:00 Constitutional: Yes: No Distress Eyes: Yes: WNL HENT: Yes: WNL Neck: Yes: WNL Cardiovascular: Yes: WNL Respiratory: Yes: WNL Gastrointestinal: Yes: Normal Bowel Sounds ...Rectal Exam: Yes: WNL, Deferred Genitourinary: Yes: WNL Breast(s): Yes: WNL Labs: INR, PTT INR 1.19 (0.82-1.09) H 06/23/17 05:35 Assessment/Plan Advance to regular diet
[2017-06-25 09:13] LABS: ANION GAP 9 (8-16); BLOOD UREA NITROGEN 5 mg/dL (7-18); CALCIUM 7.7 mg/dL (8.5-10.1); CHLORIDE 103 mmol/L (98-107); CO2 27 mmol/L (21-32); CREATININE 0.3 mg/dL (0.55-1.02); GLUCOSE,RANDOM 111 mg/dL (74-106); SODIUM 139 mmol/L (136-145)
[2017-06-25] MEDS: HEPARIN NA (PORCINE) 5,000 UNITS/ML 1ML VIAL SQ SCH ×2 (09:32→23:34)
[2017-06-25 09:58] LABS: POTASSIUM 2.6 mmol/L (3.5-5.1)
--- NOTE | 2017-06-25 13:23 | PATH ---
Surgical Pathology Report Patient Name: YARON MOSS Med. Rec. #: [id number] /Age/Gender: 1935 (Age: 82) / F Account: [id number] Location: [facility] MED/SURG Taken: 06/23/2017 Received: 06/24/2017 Reported: 06/25/2017 Physicians: Dilcia Arellano M.D. Specimen(s) Received OMENTUM AND HERNIA SAC Clinical History Left inguinal hernia Final Diagnosis OMENTUM/HERNIA SAC, HERNIA REPAIR: FIBROMEMBRANOUS AND FIBROADIPOSE TISSUE CONSISTENT WITH HERNIA SAC AND CONTENTS. SIX BENIGN LYMPH NODES (0/6). Electronically Signed Gilda Olmos M.D. Gross Description Received in formalin labeled "omentum/hernia sac," is a 10.0 x 6.5 x 2.6 cm aggregate of multiple polo-hernandez portions of fibromembranous tissue with attached fat. Sectioning reveals 5 polo lymph nodes ranging from 0.5-1.8 cm in greatest dimension. [employer] sections are submitted in 9 cassettes as follows: 1-2-one whole bisected lymph node each; 3-one whole trisected lymph node; 4-5-one whole trisected lymph node; 6-8-one whole trisected lymph node; 9-additional fibromembranous tissue and fat. /06/24/2017 saudi06/24/2017
[2017-06-25] MEDS: POTASSIUM CHLORIDE TABS 20 MEQ TABLET.ER (FP) PO SCH ×2 (16:35→23:34)
[2017-06-26] MEDS: POTASSIUM CHLORIDE 20 MEQ in DEXTROSE 5%-NORMAL SALINE 1,000 ML IVPB SCH ×2 (00:20→09:48)
[2017-06-26 02:39] VITALS: PULSE 80
[2017-06-26] MEDS: LEVOTHYROXINE NA 75 MCG TABLET (FP) PO SCH (06:10)
[2017-06-26 06:52] VITALS: BP 133/73; TEMP 98.1
[2017-06-26 07:23] LABS: ALBUMIN 2.3 g/dl (3.4-5.0); BLOOD UREA NITROGEN 4 mg/dL (7-18); CHLORIDE 107 mmol/L (98-107); POTASSIUM 3.3 mmol/L (3.5-5.1); SGOT/AST 8 U/L (15-37); SGPT/ALT 11 U/L (12-78); SODIUM 142 mmol/L (136-145)
[2017-06-26 07:26] LABS: ALK PHOS 54 U/L (45-117); ANION GAP 10 (8-16); BILIRUBIN,TOTAL 0.4 mg/dL (0.2-1.0); CALCIUM 7.5 mg/dL (8.5-10.1); CO2 25 mmol/L (21-32); CREATININE 0.3 mg/dL (0.55-1.02); GLUCOSE,RANDOM 107 mg/dL (74-106); TOT PROT 5.3 g/dl (6.4-8.2)
[2017-06-26] MEDS: HEPARIN NA (PORCINE) 5,000 UNITS/ML 1ML VIAL SQ SCH (09:12)
--- NOTE | 2017-06-26 09:19 | DS ---
Physical Examination Vital Signs: Vital Signs Temperature 98.1 F 06/26/17 06:00 Pulse Rate 80 06/26/17 06:00 Respiratory Rate 20 06/26/17 06:00 Blood Pressure 133/73 06/26/17 06:00 O2 Sat by Pulse Oximetry (%) 97 06/25/17 21:00 Findings/Remarks: Admitted with intestinal obstruction , femoral hernia repair done Had developed hypokalemia Corrected ,had BN Constitutional: Yes: No Distress Eyes: Yes: WNL HENT: Yes: WNL Neck: Yes: WNL Cardiovascular: Yes: WNL Respiratory: Yes: WNL Gastrointestinal: Yes: WNL, Normal Bowel Sounds ...Rectal Exam: Yes: Deferred Edema: No Neurological: Yes: Alert Psychiatric: Yes: Alert Labs: CBC, BMP 06/25/17 07:25 06/26/17 05:35 Discharge Summary Reason For Visit: UTI, CANDINDA CYSTITUS, INGUNIAL HERNIA Current Active Problems History of stroke (Acute) Hypertension (Acute) Hypothyroid (Acute) Incarcerated left inguinal hernia (Acute) Inguinal hernia (Acute) Intestinal obstruction (Acute) UTI (urinary tract infection) (Acute) Yeast cystitis (Acute) Condition: Stable - Instructions Referrals: Narciso Johnson MD [Primary Care Provider] - - Home Medications Comprehensive Discharge Medication List: Ambulatory Orders Amlodipine Besylate [Norvasc -] 5 mg PO DAILY 06/21/17 Levothyroxine [Synthroid -] 75 mcg PO DAILY 06/21/17
== END 2017-06-26 09:46 | disposition home or self-care (01) | DRG 222 ==
LOC: JER 09:48 → JERBED 17:03 → J8W 20:36
PROVIDERS: ADMIT Internal Medicine; ATTEND Internal Medicine
PROC: 0DH67YZ Insertion of Other Device into Stomach, Via Natural or Artificial Opening (ICD-10-PCS; 2017-06-22)
PROC: 0WJP4ZZ Inspection of Gastrointestinal Tract, Percutaneous Endoscopic Approach (ICD-10-PCS; 2017-06-23)
PROC: 0YU80JZ Supplement Left Femoral Region with Synthetic Substitute, Open Approach (ICD-10-PCS; principal; 2017-06-23 13:00)
DX: K41.30 Unilateral femoral hernia, with obstruction, without gangrene, not specified as recurrent (principal); N39.0 Urinary tract infection, site not specified; E03.9 Hypothyroidism, unspecified; I10 Essential (primary) hypertension; Z86.73 Personal history of transient ischemic attack (TIA), and cerebral infarction without residual deficits; E87.6 Hypokalemia
CPT/HCPCS: 36415; 71045-TC-FY; 74019-TC-FY; 74177-TC; 80048; 80053; 81003; 81015; 82550; 83690; 83735; 84100; 84484; 85025; 85027; 85610; 87086; 88302-TC; 93005; 93010; 94760; 99284-25; J0131; J1644; J7030

== ENCOUNTER 2021-06-25 06:10 | Inpatient (IN) | payer MEDICARE, OTHER ==
[2021-06-25] MEDS ORDERED: ONDANSETRON 4 MG/2 ML VIAL IVPUSH ONE (06:23)
[2021-06-25] MEDS ORDERED: SODIUM CHLORIDE 0.9% 500 ML INFUS.BAG IV ONE (06:23)
[2021-06-25] MEDS ORDERED: ACETAMINOPHEN 1000 MG/100 ML BAG IVPB ONE (06:23)
[2021-06-25] MEDS ORDERED: ACETAMINOPHEN INJECTION 100 ML IVPB ONE (07:01)
[2021-06-25] MEDS ORDERED: ONDANSETRON 4 MG/2 ML VIAL ONE (07:02)
[2021-06-25 08:12] LABS: VENOUS O2 SATURATION 92.9 % (70-80); VENOUS PH 7.438 (7.310-7.410)
[2021-06-25 08:14] LABS: HEMATOCRIT 29.3 % (32.4-45.2); HEMOGLOBIN 9.6 GM/dL (10.7-15.3); MCH 23.6 pg (25.7-33.7); MCHC 32.9 g/dl (32.0-36.0); MEAN CELL VOLUME 71.8 fl (80-96); MEAN PLT VOLUME 6.9 fl (7.5-11.1); PLATELET COUNT 266 10^3/uL (134-434); RBC 4.08 M/mm3 (3.60-5.2); RDW 17.2 % (11.6-15.6); WHITE BLOOD COUNT 13.2 K/mm3 (4.0-10.0)
[2021-06-25 08:20] LABS: EPI CELLS 11 /uL (0-25.1); HYALINE CASTS 0 /uL (0-3.1); URINE APPEARANCE CLEAR; URINE BACTERIA 30 /uL (0-1359); URINE BILIRUBIN NEGATIVE (NEGATIVE); URINE COLOR YELLOW; URINE GLUCOSE (UA) NEGATIVE (NEGATIVE); URINE KETONE NEGATIVE (NEGATIVE); URINE LEUK ESTERASE TRACE (NEGATIVE); URINE NITRITE NEGATIVE (NEGATIVE); URINE PROTEIN NEGATIVE (NEGATIVE); URINE RBC 69 /uL (0-23.9); URINE UROBILINOGEN 0.2 mg/dL (0.2-1.0); URINE WBC 19 /uL (0-25.8)
[2021-06-25 08:28] LABS: INR 1.46 (0.83-1.09); PROTHROMBIN TIME (PATIENT) 16.9 SEC (9.7-13.0)
[2021-06-25 08:31] LABS: ACTIVATED PTT 26.2 SECONDS (25.2-36.5)
[2021-06-25 08:34] LABS: CHLORIDE 104 mmol/L (98-107); SODIUM 138 mmol/L (136-145)
[2021-06-25 08:36] LABS: ALBUMIN 3.8 g/dl (3.4-5.0); BLOOD UREA NITROGEN 10.1 mg/dL (7-18); CALCIUM 8.6 mg/dL (8.5-10.1); CO2 26 mmol/L (21-32); GLUCOSE,RANDOM 151 mg/dL (74-106)
[2021-06-25 08:39] LABS: CREATININE 0.7 mg/dL (0.55-1.3); SGOT/AST 21 U/L (15-37); SGPT/ALT 17 U/L (13-61)
[2021-06-25 08:41] LABS: BILIRUBIN,TOTAL 0.4 mg/dL (0.2-1); TOT PROT 8.1 g/dl (6.4-8.2)
[2021-06-25 08:43] LABS: ALK PHOS 103 U/L (45-117)
[2021-06-25 08:49] LABS: ANION GAP 8 MMOL/L (8-16)
[2021-06-25 09:01] LABS: MAGNESIUM 1.7 mg/dL (1.8-2.4)
[2021-06-25 09:18] LABS: ANISOCYTOSIS 1+; MACROCYTOSIS 0; OVALOCYTE 2+
[2021-06-25] MEDS ORDERED: MAGNESIUM SULF 50% (8.12 MEQ/2 ML-1 GM VIAL) IVPB ONE (09:19)
[2021-06-25] MEDS ORDERED: POTASSIUM CHLORIDE TABS 20 MEQ TABLET.ER (FP) PO ONE ×3 (09:20→18:28)
[2021-06-25] MEDS ORDERED: MAGNESIUM 1GM/D5W - 1 GM/100 ML IVPB IVPB ONE (10:10)
[2021-06-25] MEDS ORDERED: KCL 10 MEQ IVPB 10 MEQ/100 ML INFUS.BAG IVPB ONE ×2 (10:11→13:09)
[2021-06-25] MEDS ORDERED: PIPERACILLIN/TAZOB 3.375 GM 3.375 GM/50 ML BAG IVPB ONE (10:12)
[2021-06-25] MEDS: KCL 10 MEQ IVPB 10 MEQ/100 ML INFUS.BAG IVPB SCH ×3 (10:35→15:56)
[2021-06-25] MEDS: PIPERACILLIN/TAZOB 3.375 GM 3.375 GM in DEXTROSE 5%-WATER - 50 ML IVPB ONE ×2 (10:35→11:57)
[2021-06-25] MEDS: SODIUM CHLORIDE 1,000 ML IV SCH (10:45)
[2021-06-25] MEDS ORDERED: ACETAMINOPHEN 325 MG TABLET (FP) PO PRN (14:26)
[2021-06-25] MEDS ORDERED: KCL 10 MEQ IVPB 10 MEQ/100 ML INFUS.BAG IVPB SCH ×2 (14:45→18:45)
[2021-06-25] MEDS ORDERED: DEXTROSE 5%-WATER - 50 ML IVPB ONE (17:08)
[2021-06-25] MEDS ORDERED: PIPERACILLIN/TAZOBACTAM 3.375 GM VIAL IVPB ONE (17:08)
[2021-06-25] MEDS: PIPERACILLIN/TAZOB 3.375 GM 3.375 GM in DEXTROSE 5%-WATER - 50 ML IVPB SCH (17:22)
[2021-06-26] MEDS ORDERED: PIPERACILLIN/TAZOBACTAM 3.375 GM VIAL IVPB ONE ×2 (01:22→10:30)
[2021-06-26] MEDS ORDERED: DEXTROSE 5%-WATER - 50 ML IVPB ONE ×3 (01:23→12:37)
[2021-06-26] MEDS: PIPERACILLIN/TAZOB 3.375 GM 3.375 GM in DEXTROSE 5%-WATER - 50 ML IVPB SCH ×2 (01:24→10:55)
[2021-06-26] MEDS: SODIUM CHLORIDE 1,000 ML IV SCH ×3 (03:16→18:16)
[2021-06-26] MEDS ORDERED: LEVOTHYROXINE NA 75 MCG TABLET (FP) PO SCH (07:00)
[2021-06-26] MEDS ORDERED: ACETAMINOPHEN 325 MG TABLET (FP) PO PRN (10:25)
[2021-06-26] MEDS: ACETAMINOPHEN WITH CODEINE 300MG/30MG TABLET PO PRN (10:53)
[2021-06-26] MEDS: amLODIPine BESYLATE 5 MG TABLET (FP) PO SCH (10:55)
[2021-06-26] MEDS: MAG HYDROX/AL HYDROX/SIMETH 30 ML UNIT-DOSE CUP PO PRN (10:55)
[2021-06-26] MEDS: ENOXAPARIN NA (PORCINE) 40 MG/0.4 ML DISP.SYRIN SQ SCH (10:55)
[2021-06-26 11:02] LABS: BASO % 0.4 % (0-2.0); EOS % 0.1 % (0-4.5); HEMATOCRIT 30.1 % (32.4-45.2); HEMOGLOBIN 9.8 GM/dL (10.7-15.3); LYMPH % 11.2 % (8-40); MCH 23.6 pg (25.7-33.7); MCHC 32.6 g/dl (32.0-36.0); MEAN CELL VOLUME 72.4 fl (80-96); MEAN PLT VOLUME 7.3 fl (7.5-11.1); MONO % 5.2 % (3.8-10.2); NEUT % 83.1 % (42.8-82.8); PLATELET COUNT 231 10^3/uL (134-434); RBC 4.16 M/mm3 (3.60-5.2); RDW 17.7 % (11.6-15.6); WHITE BLOOD COUNT 6.6 K/mm3 (4.0-10.0)
[2021-06-26 11:23] LABS: CALCIUM 8.5 mg/dL (8.5-10.1)
[2021-06-26 11:24] LABS: BLOOD UREA NITROGEN 7.8 mg/dL (7-18); MAGNESIUM 2.2 mg/dL (1.8-2.4)
[2021-06-26 11:27] LABS: CREATININE 0.6 mg/dL (0.55-1.3)
[2021-06-26] MEDS ORDERED: cefTRIAXone SODIUM 1 GM VIAL ONE (12:37)
[2021-06-26] MEDS: CEFTRIAXONE 1 GM in DEXTROSE 5%-WATER - 50 ML IVPB SCH (12:39)
[2021-06-26] MEDS ORDERED: POTASSIUM CHLORIDE ORAL LIQUID 20 MEQ/15 ML PO ONE (13:00)
[2021-06-27] MEDS: LEVOTHYROXINE NA 50 MCG TABLET (FP) PO SCH (06:45)
[2021-06-27 09:29] LABS: BLOOD UREA NITROGEN 9.3 mg/dL (7-18); CALCIUM 8.2 mg/dL (8.5-10.1); CREATININE 0.5 mg/dL (0.55-1.3)
[2021-06-27 10:05] LABS: BASO % 0.4 % (0-2.0); EOS % 1.5 % (0-4.5); HEMATOCRIT 31.9 % (32.4-45.2); HEMOGLOBIN 9.8 GM/dL (10.7-15.3); LYMPH % 12.6 % (8-40); MCH 22.7 pg (25.7-33.7); MCHC 30.7 g/dl (32.0-36.0); MEAN CELL VOLUME 73.7 fl (80-96); MEAN PLT VOLUME 7.5 fl (7.5-11.1); MONO % 6.2 % (3.8-10.2); NEUT % 79.3 % (42.8-82.8); PLATELET COUNT 243 10^3/uL (134-434); RBC 4.33 M/mm3 (3.60-5.2); RDW 17.8 % (11.6-15.6); WHITE BLOOD COUNT 7.3 K/mm3 (4.0-10.0)
[2021-06-27] MEDS ORDERED: DEXTROSE 5%-WATER - 50 ML IVPB ONE (10:35)
[2021-06-27] MEDS ORDERED: cefTRIAXone SODIUM 1 GM VIAL ONE (10:35)
[2021-06-27] MEDS: ACETAMINOPHEN WITH CODEINE 300MG/30MG TABLET PO PRN (11:32)
[2021-06-27] MEDS: amLODIPine BESYLATE 5 MG TABLET (FP) PO SCH (11:32)
[2021-06-27] MEDS: ENOXAPARIN NA (PORCINE) 40 MG/0.4 ML DISP.SYRIN SQ SCH (11:32)
[2021-06-27] MEDS: MAG HYDROX/AL HYDROX/SIMETH 30 ML UNIT-DOSE CUP PO PRN (11:36)
[2021-06-27] MEDS: SODIUM CHLORIDE 1,000 ML IV SCH ×2 (12:28→20:20)
[2021-06-27] MEDS: CEFTRIAXONE 1 GM in DEXTROSE 5%-WATER - 50 ML IVPB SCH (12:28)
[2021-06-27] MEDS ORDERED: IRON SUCROSE INJECTION 200 MG in SODIUM CHLORIDE 90 ML IVPB ONE (14:57)
[2021-06-27 15:59] VITALS: BMI 18.5
[2021-06-27] MEDS ORDERED: guaiFENesin 200 MG/10 ML 10 ML UNIT-DOSE CUPS PO PRN (21:11)
[2021-06-28] MEDS: LEVOTHYROXINE NA 50 MCG TABLET (FP) PO SCH (06:04)
[2021-06-28 06:38] LABS: BASO % 0.1 % (0-2.0); EOS % 2.3 % (0-4.5); HEMATOCRIT 27.6 % (32.4-45.2); HEMOGLOBIN 8.9 GM/dL (10.7-15.3); LYMPH % 11.4 % (8-40); MCH 23.3 pg (25.7-33.7); MCHC 32.2 g/dl (32.0-36.0); MEAN CELL VOLUME 72.4 fl (80-96); MEAN PLT VOLUME 7.7 fl (7.5-11.1); MONO % 6.8 % (3.8-10.2); NEUT % 79.4 % (42.8-82.8); PLATELET COUNT 240 10^3/uL (134-434); RBC 3.82 M/mm3 (3.60-5.2); RDW 17.4 % (11.6-15.6); WHITE BLOOD COUNT 7.4 K/mm3 (4.0-10.0)
[2021-06-28 06:51] LABS: CALCIUM 8.2 mg/dL (8.5-10.1)
[2021-06-28 06:52] LABS: BLOOD UREA NITROGEN 5.2 mg/dL (7-18)
[2021-06-28 06:55] LABS: CREATININE 0.4 mg/dL (0.55-1.3)
[2021-06-28 08:58] VITALS: BP 139/68; PULSE 82; TEMP 98.8
[2021-06-28] MEDS ORDERED: DEXTROSE 5%-WATER - 50 ML IVPB ONE (09:52)
[2021-06-28] MEDS ORDERED: cefTRIAXone SODIUM 1 GM VIAL ONE (09:52)
[2021-06-28] MEDS: POTASSIUM CHLORIDE ORAL LIQUID 20 MEQ/15 ML PO ONE ×2 (11:05→11:16)
[2021-06-28] MEDS: ENOXAPARIN NA (PORCINE) 40 MG/0.4 ML DISP.SYRIN SQ SCH (11:05)
[2021-06-28] MEDS: CEFTRIAXONE 1 GM in DEXTROSE 5%-WATER - 50 ML IVPB SCH (11:05)
[2021-06-28] MEDS: amLODIPine BESYLATE 5 MG TABLET (FP) PO SCH (11:05)
[2021-06-28] MEDS: SODIUM CHLORIDE 1,000 ML IV SCH (11:06)
[2021-06-28] MEDS: ACETAMINOPHEN WITH CODEINE 300MG/30MG TABLET PO PRN (11:08)
[2021-06-28] MEDS ORDERED: POTASSIUM CHLORIDE TABS 20 MEQ TABLET.ER (FP) PO ONE (11:30)
[2021-06-28] MEDS: FAMOTIDINE 20 MG/50 ML IVPB 20 MG/50 ML MG IVPB SCH (12:03)
[2021-06-28] MEDS ORDERED: AMOX TR/POT CLAV 875MG/125MG TABLETS (FP) PO SCH (17:30)
[2021-06-29] MEDS ORDERED: FAMOTIDINE 20 MG TABLET PO SCH (10:00)
== END 2021-06-28 14:30 | disposition home or self-care (01) | DRG 872 ==
LOC: JER 06:10 → JERBED 09:50 → J7W 13:40
PROVIDERS: ADMIT Internal Medicine; ATTEND Internal Medicine
DX: A40.1 Sepsis due to streptococcus, group B (principal); N39.0 Urinary tract infection, site not specified; E87.6 Hypokalemia; E86.0 Dehydration; R11.2 Nausea with vomiting, unspecified; I10 Essential (primary) hypertension; E03.9 Hypothyroidism, unspecified; D64.9 Anemia, unspecified; K52.9 Noninfective gastroenteritis and colitis, unspecified
CPT/HCPCS: 36415; 71045-TC-FY; 74177-TC; 80048; 80053; 81003; 82550; 82553; 82607; 82728; 82803; 82962; 83540; 83550; 83605; 83735; 84100; 84132; 84443; 85025; 85610; 85730; 86850; 86900; 86901; 87040; 87077; 87086; 87186; 87804; 93005; 93010; 93306-TC; 97116-GP; 97161-GP; 99285-25; C9803-CS; J1756; Q9967; U0003; U0005